=== PATIENT | male | born 1965 | race African-American/Black ===

== ENCOUNTER 2020-05-31 11:43 | Inpatient (IN) | payer OTHER ==
[2020-05-31 13:26] VITALS: BMI 22.4
[2020-05-31] MEDS ORDERED: METHADONE HCL 10 MG TABLET (FOR DETOX USE ONLY) PO ONE (14:41)
[2020-05-31] MEDS ORDERED: MAGNESIUM HYDROX 2400MG/30ML ORAL SUSPENSION 30 ML CUP PO PRN (14:41)
[2020-05-31] MEDS ORDERED: BISMUTH SUBSALICYLATE 262 MG/15 ML BTL PO PRN (14:41)
[2020-05-31] MEDS ORDERED: MAGNESIUM CITRATE 300 ML BOTTLE PO PRN (14:41)
[2020-05-31] MEDS ORDERED: IBUPROFEN 400 MG TABLET (FP) PO PRN (14:41)
[2020-05-31] MEDS ORDERED: NALOXONE (NARCAN) HCL 4 MG/0.1 ML SPRAY NS PRN (14:41)
[2020-05-31] MEDS ORDERED: ACETAMINOPHEN 325 MG TABLET (FP) PO PRN ×2 (14:41)
[2020-05-31] MEDS ORDERED: DICYCLOMINE HCL 10 MG CAPSULE PO PRN (14:41)
[2020-05-31] MEDS ORDERED: MENTHOL/PHENOL 1 EACH UD MM PRN (14:41)
[2020-05-31] MEDS ORDERED: MAG HYDROX/AL HYDROX/SIMETH 30 ML UNIT-DOSE CUP PO PRN (14:41)
[2020-05-31] MEDS ORDERED: cloNIDine HCL 0.1 MG TABLET PO PRN (14:41)
[2020-05-31] MEDS ORDERED: METHOCARBAMOL 500 MG TABLET PO PRN (14:41)
[2020-05-31] MEDS ORDERED: hydrOXYzine PAMOATE 25 MG CAPSULE (FP) PO PRN (14:41)
[2020-05-31] MEDS ORDERED: GLATIRAMER ACETATE 40 MG/ML SQ SCH (14:45)
[2020-05-31] MEDS ORDERED: [UNRECOGNIZED DRUG - OTHER] SQ SCH (14:45)
[2020-05-31 17:22] LABS: ALBUMIN 3.8 g/dl (3.4-5.0)
[2020-05-31 17:23] LABS: BLOOD UREA NITROGEN 8.9 mg/dL (7-18)
[2020-05-31 17:26] LABS: CREATININE 1.2 mg/dL (0.55-1.3); HEMATOCRIT 42.7 % (35.4-49); HEMOGLOBIN 14.1 GM/dL (11.7-16.9); MCH 31.7 pg (25.7-33.7); MCHC 33.1 g/dl (32.0-35.9); MEAN CELL VOLUME 95.6 fl (80-96); PLATELET COUNT 201 K/MM3 (134-434); RBC 4.47 M/mm3 (4.00-5.60); RDW 13.3 % (11.9-15.9); WHITE BLOOD COUNT 6.7 K/mm3 (4.0-10.0)
[2020-05-31 17:27] LABS: BILIRUBIN,TOTAL 0.6 mg/dL (0.2-1); TOT PROT 7.4 g/dl (6.4-8.2)
[2020-05-31] MEDS: BACLOFEN 10 MG TABLET (FP) PO SCH (21:34)
[2020-05-31] MEDS: GABAPENTIN 300 MG CAPSULE PO SCH (21:34)
[2020-05-31] MEDS: THIAMINE HCL 100 MG TABLET (FP) PO SCH (21:35)
[2020-05-31] MEDS: DALFAMPRIDINE 10 MG PO SCH (21:35)
[2020-05-31] MEDS: DOCUSATE SODIUM 100 MG CAPSULE (FP) PO SCH (21:35)
[2020-05-31] MEDS: MELATONIN 5 MG TABLETS PO SCH (21:35)
[2020-06-01] MEDS: BACLOFEN 10 MG TABLET (FP) PO SCH ×3 (05:49→21:34)
[2020-06-01] MEDS: DOCUSATE SODIUM 100 MG CAPSULE (FP) PO SCH ×3 (05:49→21:34)
[2020-06-01] MEDS: diazePAM 5 MG TABLET PO PRN ×2 (06:06→10:45)
[2020-06-01] MEDS ORDERED: METHADONE HCL 10 MG TABLET (FOR DETOX USE ONLY) ONE (08:50)
[2020-06-01] MEDS ORDERED: METHADONE HCL 5 MG TABLET (FOR DETOX USE ONLY) ONE (08:51)
[2020-06-01] MEDS ORDERED: METHADONE (DETOX) 20 MG, METHADONE (DETOX) 5 MG PO ONE (10:00)
[2020-06-01] MEDS: GABAPENTIN 300 MG CAPSULE PO SCH ×2 (10:40→21:33)
[2020-06-01] MEDS: OXYBUTYNIN CHLORIDE 5 MG TABLET PO SCH (10:40)
[2020-06-01] MEDS: DALFAMPRIDINE 10 MG PO SCH ×2 (10:42→21:34)
[2020-06-01] MEDS: PRENATAL VITAMINS W/ FOLIC ACID TABLET (FP) PO SCH (10:46)
[2020-06-01] MEDS: GLATIRAMER ACETATE 40 MG SQ SCH (10:46)
[2020-06-01] MEDS: SERTRALINE HCL 50 MG TABLET (FP) PO SCH (15:24)
[2020-06-01] MEDS: QUEtiapine FUMARATE 50 MG TABLET PO SCH (21:34)
[2020-06-01] MEDS: MELATONIN 5 MG TABLETS PO SCH (21:34)
[2020-06-01] MEDS: THIAMINE HCL 100 MG TABLET (FP) PO SCH (21:34)
[2020-06-02] MEDS: BACLOFEN 10 MG TABLET (FP) PO SCH ×3 (06:13→22:43)
[2020-06-02] MEDS: DOCUSATE SODIUM 100 MG CAPSULE (FP) PO SCH ×3 (06:13→22:42)
[2020-06-02] MEDS ORDERED: METHADONE HCL 10 MG TABLET (FOR DETOX USE ONLY) PO ONE (10:00)
[2020-06-02] MEDS: DALFAMPRIDINE 10 MG PO SCH ×2 (10:21→22:42)
[2020-06-02] MEDS: SERTRALINE HCL 50 MG TABLET (FP) PO SCH (10:23)
[2020-06-02] MEDS: OXYBUTYNIN CHLORIDE 5 MG TABLET PO SCH (10:23)
[2020-06-02] MEDS: GABAPENTIN 300 MG CAPSULE PO SCH ×2 (10:23→22:43)
[2020-06-02] MEDS: PRENATAL VITAMINS W/ FOLIC ACID TABLET (FP) PO SCH (10:23)
[2020-06-02] MEDS: ONDANSETRON *ODT* 4 MG TABLET SL PRN (10:23)
[2020-06-02] MEDS: diazePAM 5 MG TABLET PO PRN (10:25)
[2020-06-02] MEDS: QUEtiapine FUMARATE 50 MG TABLET PO SCH (22:42)
[2020-06-02] MEDS: MELATONIN 5 MG TABLETS PO SCH (22:43)
[2020-06-02] MEDS: THIAMINE HCL 100 MG TABLET (FP) PO SCH (22:43)
[2020-06-03] MEDS: DOCUSATE SODIUM 100 MG CAPSULE (FP) PO SCH ×3 (06:31→21:43)
[2020-06-03] MEDS: BACLOFEN 10 MG TABLET (FP) PO SCH ×3 (06:31→21:43)
[2020-06-03] MEDS: diazePAM 5 MG TABLET PO PRN ×2 (06:32→10:34)
[2020-06-03 08:09] LABS: SARS-CoV-2 NAA Not Detected (Not Detected)
[2020-06-03] MEDS ORDERED: METHADONE HCL 10 MG TABLET (FOR DETOX USE ONLY) ONE (09:35)
[2020-06-03] MEDS ORDERED: METHADONE HCL 5 MG TABLET (FOR DETOX USE ONLY) ONE (09:36)
[2020-06-03] MEDS: ONDANSETRON *ODT* 4 MG TABLET SL PRN (09:39)
[2020-06-03] MEDS ORDERED: METHADONE (DETOX) 10 MG, METHADONE (DETOX) 5 MG PO ONE (10:00)
[2020-06-03] MEDS: GLATIRAMER ACETATE 40 MG SQ SCH (10:30)
[2020-06-03] MEDS: GABAPENTIN 300 MG CAPSULE PO SCH ×2 (10:30→21:43)
[2020-06-03] MEDS: DALFAMPRIDINE 10 MG PO SCH ×2 (10:32→21:44)
[2020-06-03] MEDS: PRENATAL VITAMINS W/ FOLIC ACID TABLET (FP) PO SCH (10:33)
[2020-06-03] MEDS: OXYBUTYNIN CHLORIDE 5 MG TABLET PO SCH (10:33)
[2020-06-03] MEDS: SERTRALINE HCL 50 MG TABLET (FP) PO SCH (10:34)
[2020-06-03] MEDS: QUEtiapine FUMARATE 50 MG TABLET PO SCH (21:43)
[2020-06-03] MEDS: THIAMINE HCL 100 MG TABLET (FP) PO SCH (21:43)
[2020-06-03] MEDS: MELATONIN 5 MG TABLETS PO SCH (22:50)
[2020-06-03 23:05] LABS: EPI CELLS 7 /uL (0-25.1); HYALINE CASTS 0 /uL (0-3.1); URINE APPEARANCE TURBID; URINE BILIRUBIN NEGATIVE (NEGATIVE); URINE COLOR YELLOW; URINE GLUCOSE (UA) NEGATIVE (NEGATIVE); URINE KETONE TRACE (NEGATIVE); URINE LEUK ESTERASE NEGATIVE (NEGATIVE); URINE NITRITE POSITIVE (NEGATIVE); URINE PROTEIN NEGATIVE (NEGATIVE); URINE RBC 5 /uL (0-23.9); URINE WBC 7 /uL (0-25.8)
[2020-06-03 23:31] LABS: URINE BACTERIA MANY /uL (0-1359)
[2020-06-04] MEDS: BACLOFEN 10 MG TABLET (FP) PO SCH ×3 (05:38→22:51)
[2020-06-04] MEDS: DOCUSATE SODIUM 100 MG CAPSULE (FP) PO SCH ×3 (05:38→22:51)
[2020-06-04] MEDS: SERTRALINE HCL 50 MG TABLET (FP) PO SCH (09:46)
[2020-06-04] MEDS: DALFAMPRIDINE 10 MG PO SCH ×2 (09:46→22:51)
[2020-06-04] MEDS: PRENATAL VITAMINS W/ FOLIC ACID TABLET (FP) PO SCH (09:47)
[2020-06-04] MEDS: OXYBUTYNIN CHLORIDE 5 MG TABLET PO SCH (09:47)
[2020-06-04] MEDS: GABAPENTIN 300 MG CAPSULE PO SCH ×2 (09:47→22:51)
[2020-06-04] MEDS ORDERED: METHADONE HCL 10 MG TABLET (FOR DETOX USE ONLY) PO ONE (10:00)
[2020-06-04] MEDS: QUEtiapine FUMARATE 50 MG TABLET PO SCH (22:51)
[2020-06-04] MEDS: THIAMINE HCL 100 MG TABLET (FP) PO SCH (22:51)
[2020-06-04] MEDS: MELATONIN 5 MG TABLETS PO SCH (22:54)
[2020-06-05] MEDS ORDERED: METHADONE HCL 5 MG TABLET (FOR DETOX USE ONLY) PO ONE (06:00)
[2020-06-05] MEDS: BACLOFEN 10 MG TABLET (FP) PO SCH (06:10)
[2020-06-05] MEDS: DOCUSATE SODIUM 100 MG CAPSULE (FP) PO SCH (06:10)
[2020-06-05] MEDS: ONDANSETRON *ODT* 4 MG TABLET SL PRN (07:36)
[2020-06-05] MEDS: DALFAMPRIDINE 10 MG PO SCH (10:04)
[2020-06-05] MEDS: GABAPENTIN 300 MG CAPSULE PO SCH (10:04)
[2020-06-05] MEDS: PRENATAL VITAMINS W/ FOLIC ACID TABLET (FP) PO SCH (10:04)
[2020-06-05] MEDS: SERTRALINE HCL 50 MG TABLET (FP) PO SCH (10:04)
[2020-06-05] MEDS: OXYBUTYNIN CHLORIDE 5 MG TABLET PO SCH (10:04)
[2020-06-05 11:30] VITALS: BP 116/75; PULSE 104; TEMP 98.4
== END 2020-06-05 11:00 | disposition home or self-care (01) | DRG 773 ==
LOC: YASAS 11:43 → Y3N 15:14
PROVIDERS: ADMIT Allergy & Immunology; ATTEND Allergy & Immunology
PROC: HZ2ZZZZ Detoxification Services for Substance Abuse Treatment (ICD-10-PCS; principal; 2020-05-31)
DX: F11.23 Opioid dependence with withdrawal (principal); F12.20 Cannabis dependence, uncomplicated; G35 Multiple sclerosis; M54.5 Low back pain; G89.29 Other chronic pain; N39.0 Urinary tract infection, site not specified; Z87.891 Personal history of nicotine dependence; Z99.3 Dependence on wheelchair
CPT/HCPCS: 36415; 71045-TC-FY; 80053; 81003; 85027; 86780; 93005; 93010; C9803; J0475; Q0162; U0003; U0005

== ENCOUNTER 2021-04-15 21:51 | Inpatient (IN) | payer OTHER ==
[2021-04-16] MEDS ORDERED: IBUPROFEN 400 MG TABLET (FP) PO PRN (01:09)
[2021-04-16] MEDS ORDERED: LOPERAMIDE HCL 2 MG CAPSULE PO PRN (01:09)
[2021-04-16] MEDS ORDERED: methaDONE HCL 10 MG TABLET (FOR DETOX USE ONLY) PO ONE (01:09)
[2021-04-16] MEDS ORDERED: METHOCARBAMOL 500 MG TABLET PO PRN (01:09)
[2021-04-16] MEDS ORDERED: ACETAMINOPHEN 325 MG TABLET (FP) PO PRN ×2 (01:09)
[2021-04-16] MEDS ORDERED: MAGNESIUM CITRATE 300 ML BOTTLE PO PRN (01:09)
[2021-04-16] MEDS ORDERED: NICOTINE 10 MG CARTRIDGE (INHALER) IH PRN (01:09)
[2021-04-16] MEDS ORDERED: MAG HYDROX/AL HYDROX/SIMETH 30 ML UNIT-DOSE CUP PO PRN (01:09)
[2021-04-16] MEDS ORDERED: BISMUTH SUBSALICYLATE 524 MG/30 ML PO PRN (01:09)
[2021-04-16] MEDS ORDERED: MAGNESIUM HYDROX 2400MG/30ML ORAL SUSPENSION 30 ML CUP PO PRN (01:09)
[2021-04-16] MEDS ORDERED: ONDANSETRON *ODT* 4 MG TABLET SL PRN (01:09)
[2021-04-16] MEDS ORDERED: cloNIDine HCL 0.1 MG TABLET PO PRN (01:09)
[2021-04-16] MEDS ORDERED: MENTHOL/PHENOL 1 EACH UD MM PRN (01:09)
[2021-04-16 03:32] VITALS: BMI 21.3
[2021-04-16] MEDS: PRENATAL VITAMINS W/ FOLIC ACID TABLET (FP) PO SCH (10:06)
[2021-04-16] MEDS ORDERED: NAPROXEN 250 MG TABLET PO PRN (14:31)
[2021-04-16] MEDS ORDERED: NAPROXEN SODIUM PO PRN (15:00)
[2021-04-16] MEDS: DALFAMPRIDINE 10 MG PO SCH ×2 (15:13→22:42)
[2021-04-16] MEDS: GABAPENTIN 300 MG CAPSULE PO SCH ×2 (15:13→22:42)
[2021-04-16] MEDS: METHYL SALICYLATE/MENTHOL OINT 30 GM TUBE TP SCH (22:41)
[2021-04-16] MEDS: QUEtiapine FUMARATE 50 MG TABLET PO SCH (22:42)
[2021-04-16] MEDS: MELATONIN 5 MG TABLETS PO SCH (22:42)
[2021-04-16] MEDS: DOCUSATE SODIUM 100 MG CAPSULE (FP) PO SCH (22:42)
[2021-04-16] MEDS: THIAMINE HCL 100 MG TABLET (FP) PO SCH (22:42)
[2021-04-17] MEDS: DOCUSATE SODIUM 100 MG CAPSULE (FP) PO SCH ×3 (05:19→22:25)
[2021-04-17] MEDS: GABAPENTIN 300 MG CAPSULE PO SCH ×3 (05:19→22:25)
[2021-04-17] MEDS ORDERED: methaDONE HCL 10 MG TABLET (FOR DETOX USE ONLY) ONE (08:28)
[2021-04-17] MEDS ORDERED: PATIENT'S OWN MEDICATION (NON-FORMULARY) (Glatiramer Acetate [Copaxone] 40 MG/ML Syringe) SQ ONE (10:00)
[2021-04-17] MEDS: SERTRALINE HCL 50 MG TABLET (FP) PO SCH (10:20)
[2021-04-17] MEDS: PRENATAL VITAMINS W/ FOLIC ACID TABLET (FP) PO SCH (10:20)
[2021-04-17] MEDS: DALFAMPRIDINE 10 MG PO SCH ×2 (10:21→22:25)
[2021-04-17] MEDS: METHYL SALICYLATE/MENTHOL OINT 30 GM TUBE TP SCH ×2 (10:22→22:25)
[2021-04-17] MEDS: BACLOFEN 10 MG TABLET (FP) PO PRN (10:22)
[2021-04-17] MEDS: QUEtiapine FUMARATE 50 MG TABLET PO SCH (22:25)
[2021-04-17] MEDS: THIAMINE HCL 100 MG TABLET (FP) PO SCH (22:25)
[2021-04-17] MEDS: MELATONIN 5 MG TABLETS PO SCH (22:25)
[2021-04-18] MEDS: GABAPENTIN 300 MG CAPSULE PO SCH ×3 (05:49→22:15)
[2021-04-18] MEDS: DOCUSATE SODIUM 100 MG CAPSULE (FP) PO SCH ×3 (05:49→22:15)
[2021-04-18] MEDS ORDERED: methaDONE HCL 10 MG TABLET (FOR DETOX USE ONLY) PO ONE (10:00)
[2021-04-18] MEDS: PRENATAL VITAMINS W/ FOLIC ACID TABLET (FP) PO SCH (10:52)
[2021-04-18] MEDS: METHYL SALICYLATE/MENTHOL OINT 30 GM TUBE TP SCH ×2 (10:52→22:16)
[2021-04-18] MEDS: DALFAMPRIDINE 10 MG PO SCH ×2 (10:53→22:16)
[2021-04-18 10:54] LABS: HEMATOCRIT 39.5 % (35.4-49); HEMOGLOBIN 13.2 GM/dL (11.7-16.9); MCH 31.2 pg (25.7-33.7); MCHC 33.5 g/dl (32.0-35.9); MEAN CELL VOLUME 93.1 fl (80-96); MEAN PLT VOLUME 7.9 fl (7.5-11.1); PLATELET COUNT 291 10^3/uL (134-434); RBC 4.25 M/mm3 (4.00-5.60); RDW 12.6 % (11.9-15.9); WHITE BLOOD COUNT 5.6 K/mm3 (4.0-10.0)
[2021-04-18] MEDS: SERTRALINE HCL 50 MG TABLET (FP) PO SCH (10:54)
[2021-04-18] MEDS: BACLOFEN 10 MG TABLET (FP) PO PRN (10:56)
[2021-04-18 11:03] LABS: ALBUMIN 3.6 g/dl (3.4-5.0); BLOOD UREA NITROGEN 7.2 mg/dL (7-18); CALCIUM 9.6 mg/dL (8.5-10.1)
[2021-04-18 11:06] LABS: CREATININE 1.1 mg/dL (0.55-1.3)
[2021-04-18 11:07] LABS: BILIRUBIN,TOTAL 0.8 mg/dL (0.2-1); TOT PROT 6.9 g/dl (6.4-8.2)
[2021-04-18 16:07] LABS: SARS-CoV-2 NAA Not Detected (Not Detected)
[2021-04-18 17:38] LABS: HIV INTERPRETATION NEGATIVE (NEGATIVE)
[2021-04-18] MEDS: QUEtiapine FUMARATE 50 MG TABLET PO SCH (22:15)
[2021-04-18] MEDS: MELATONIN 5 MG TABLETS PO SCH (22:15)
[2021-04-18] MEDS: THIAMINE HCL 100 MG TABLET (FP) PO SCH (22:15)
[2021-04-19] MEDS: GABAPENTIN 300 MG CAPSULE PO SCH ×3 (05:04→22:36)
[2021-04-19] MEDS: DOCUSATE SODIUM 100 MG CAPSULE (FP) PO SCH ×3 (05:04→22:36)
[2021-04-19] MEDS ORDERED: methaDONE HCL 10 MG TABLET (FOR DETOX USE ONLY) ONE (08:53)
[2021-04-19] MEDS: DALFAMPRIDINE 10 MG PO SCH ×2 (09:50→22:37)
[2021-04-19] MEDS: PRENATAL VITAMINS W/ FOLIC ACID TABLET (FP) PO SCH (09:50)
[2021-04-19] MEDS: SERTRALINE HCL 50 MG TABLET (FP) PO SCH (09:50)
[2021-04-19] MEDS: METHYL SALICYLATE/MENTHOL OINT 30 GM TUBE TP SCH ×2 (09:51→22:38)
[2021-04-19] MEDS: CLOTRIMAZOLE 1% CREAM TP SCH ×2 (11:00→22:37)
[2021-04-19] MEDS: THIAMINE HCL 100 MG TABLET (FP) PO SCH (22:36)
[2021-04-19] MEDS: QUEtiapine FUMARATE 50 MG TABLET PO SCH (22:36)
[2021-04-19] MEDS: MELATONIN 5 MG TABLETS PO SCH (22:37)
[2021-04-20] MEDS: DOCUSATE SODIUM 100 MG CAPSULE (FP) PO SCH ×3 (05:53→22:32)
[2021-04-20] MEDS: GABAPENTIN 300 MG CAPSULE PO SCH ×3 (05:53→22:36)
[2021-04-20] MEDS ORDERED: methaDONE HCL 10 MG TABLET (FOR DETOX USE ONLY) PO ONE (10:00)
[2021-04-20] MEDS ORDERED: PATIENT'S OWN MEDICATION (NON-FORMULARY) (Glatiramer Acetate [Copaxone] 40 MG/ML Syringe) SQ SCH (10:00)
[2021-04-20] MEDS: DALFAMPRIDINE 10 MG PO SCH ×2 (10:55→22:32)
[2021-04-20] MEDS: METHYL SALICYLATE/MENTHOL OINT 30 GM TUBE TP SCH ×2 (10:55→22:58)
[2021-04-20] MEDS: PRENATAL VITAMINS W/ FOLIC ACID TABLET (FP) PO SCH (10:56)
[2021-04-20] MEDS: CLOTRIMAZOLE 1% CREAM TP SCH ×2 (10:56→22:32)
[2021-04-20] MEDS: SERTRALINE HCL 50 MG TABLET (FP) PO SCH (10:56)
[2021-04-20] MEDS: CALCIUM 250MG/VIT-D 125 UNITS 1 COMBO TABLET PO SCH (12:07)
[2021-04-20 14:05] LABS: PH,URINE >= 9.0 (5.0-8.0); URINE APPEARANCE TURBID; URINE BILIRUBIN NEGATIVE (NEGATIVE); URINE COLOR YELLOW; URINE GLUCOSE (UA) NEGATIVE (NEGATIVE); URINE KETONE NEGATIVE (NEGATIVE); URINE LEUK ESTERASE NEGATIVE (NEGATIVE); URINE NITRITE NEGATIVE (NEGATIVE); URINE PROTEIN NEGATIVE (NEGATIVE)
[2021-04-20] MEDS ORDERED: PATIENT'S OWN MEDICATION (NON-FORMULARY) (Glatiramer Acetate [Copaxone] 40 MG/ML Syringe) SQ ONE (14:30)
[2021-04-20] MEDS: QUEtiapine FUMARATE 50 MG TABLET PO SCH (22:32)
[2021-04-20] MEDS: MELATONIN 5 MG TABLETS PO SCH (22:32)
[2021-04-20] MEDS: THIAMINE HCL 100 MG TABLET (FP) PO SCH (22:33)
[2021-04-20] MEDS: BACLOFEN 10 MG TABLET (FP) PO PRN (22:34)
[2021-04-21] MEDS: GABAPENTIN 300 MG CAPSULE PO SCH (05:15)
[2021-04-21] MEDS: DOCUSATE SODIUM 100 MG CAPSULE (FP) PO SCH (05:15)
[2021-04-21] MEDS: METHYL SALICYLATE/MENTHOL OINT 30 GM TUBE TP SCH (10:17)
[2021-04-21] MEDS: PRENATAL VITAMINS W/ FOLIC ACID TABLET (FP) PO SCH (10:17)
[2021-04-21] MEDS: DALFAMPRIDINE 10 MG PO SCH (10:18)
[2021-04-21] MEDS: CLOTRIMAZOLE 1% CREAM TP SCH (10:19)
[2021-04-21] MEDS: CALCIUM 250MG/VIT-D 125 UNITS 1 COMBO TABLET PO SCH (10:19)
[2021-04-21] MEDS: SERTRALINE HCL 50 MG TABLET (FP) PO SCH (10:20)
[2021-04-21] MEDS: BACLOFEN 10 MG TABLET (FP) PO PRN (10:20)
[2021-04-21 13:11] VITALS: BP 110/72; PULSE 84; TEMP 97.3
== END 2021-04-21 13:14 | disposition other institution (70) | DRG 773 ==
LOC: YASAS 21:51 → Y3N 04-16 02:29 → Y6N 04-16 02:36
PROVIDERS: ADMIT Allergy & Immunology; ATTEND Allergy & Immunology
PROC: HZ2ZZZZ Detoxification Services for Substance Abuse Treatment (ICD-10-PCS; principal; 2021-04-16)
DX: F11.23 Opioid dependence with withdrawal (principal); F16.20 Hallucinogen dependence, uncomplicated; F12.20 Cannabis dependence, uncomplicated; F17.210 Nicotine dependence, cigarettes, uncomplicated; F31.9 Bipolar disorder, unspecified; F43.10 Post-traumatic stress disorder, unspecified; G35 Multiple sclerosis; M54.50 Low back pain, unspecified; G89.29 Other chronic pain; N39.0 Urinary tract infection, site not specified; B96.89 Other specified bacterial agents as the cause of diseases classified elsewhere; K59.00 Constipation, unspecified; R76.11 Nonspecific reaction to tuberculin skin test without active tuberculosis; Z99.89 Dependence on other enabling machines and devices
CPT/HCPCS: 36415; 80053; 81003; 85025; 85027; 86780; 87086; 87186; 87389; 87811; 93005; 93010; C9803; J0475; U0003; U0005

== ENCOUNTER 2021-04-21 13:18 | Inpatient (IN) | payer OTHER ==
[2021-04-21] MEDS ORDERED: NICOTINE 10 MG CARTRIDGE (INHALER) IH PRN (15:00)
[2021-04-21] MEDS ORDERED: MENTHOL/PHENOL 1 EACH UD MM PRN (15:00)
[2021-04-21] MEDS ORDERED: guaiFENesin 200 MG/10 ML 10 ML UNIT-DOSE CUPS PO PRN (15:00)
[2021-04-21] MEDS ORDERED: P-EPHED 60MG/TRIPROLIDI 2.5MG TABLET PO PRN (15:00)
[2021-04-21] MEDS ORDERED: LOPERAMIDE HCL 2 MG CAPSULE PO PRN (15:00)
[2021-04-21] MEDS ORDERED: IBUPROFEN 400 MG TABLET (FP) PO PRN (15:00)
[2021-04-21] MEDS ORDERED: MAGNESIUM CITRATE 300 ML BOTTLE PO PRN (15:00)
[2021-04-21] MEDS ORDERED: MAG HYDROX/AL HYDROX/SIMETH 30 ML UNIT-DOSE CUP PO PRN (15:00)
[2021-04-21] MEDS ORDERED: MAGNESIUM HYDROX 2400MG/30ML ORAL SUSPENSION 30 ML CUP PO PRN (15:00)
[2021-04-21] MEDS ORDERED: ACETAMINOPHEN 325 MG TABLET (FP) PO PRN (15:00)
[2021-04-21] MEDS ORDERED: hydrOXYzine PAMOATE 25 MG CAPSULE (FP) PO PRN (15:00)
[2021-04-21] MEDS ORDERED: BACLOFEN 10 MG TABLET (FP) PO PRN (15:11)
[2021-04-21] MEDS ORDERED: NAPROXEN 250 MG TABLET PO PRN (15:15)
[2021-04-21] MEDS ORDERED: PATIENT'S OWN MEDICATION (NON-FORMULARY) (Glatiramer Acetate [Copaxone] 40 MG/ML Syringe) SQ SCH (15:15)
[2021-04-21] MEDS: CALCIUM 500MG/VIT-D 200 UNITS COMBO TABLET (FP) PO SCH (21:33)
[2021-04-21] MEDS: DALFAMPRIDINE 10 MG PO SCH (21:33)
[2021-04-21] MEDS: GABAPENTIN 300 MG CAPSULE PO SCH (21:33)
[2021-04-21] MEDS: DOCUSATE SODIUM 100 MG CAPSULE (FP) PO SCH (21:33)
[2021-04-21] MEDS: MELATONIN 5 MG TABLETS PO SCH (21:33)
[2021-04-21] MEDS: QUEtiapine FUMARATE 50 MG TABLET PO SCH (21:33)
[2021-04-21] MEDS: THIAMINE HCL 100 MG TABLET (FP) PO SCH (21:34)
[2021-04-22] MEDS: DOCUSATE SODIUM 100 MG CAPSULE (FP) PO SCH ×3 (06:34→21:18)
[2021-04-22] MEDS: GABAPENTIN 300 MG CAPSULE PO SCH ×3 (06:34→21:18)
[2021-04-22] MEDS: PRENATAL VITAMINS W/ FOLIC ACID TABLET (FP) PO SCH (09:51)
[2021-04-22] MEDS: SERTRALINE HCL 50 MG TABLET (FP) PO SCH (09:51)
[2021-04-22] MEDS: CALCIUM 500MG/VIT-D 200 UNITS COMBO TABLET (FP) PO SCH ×2 (09:51→21:19)
[2021-04-22] MEDS: DALFAMPRIDINE 10 MG PO SCH ×2 (09:52→21:31)
[2021-04-22] MEDS: NICOTINE 7 MG/24 HOURS TOPICAL PATCH TD SCH (09:52)
[2021-04-22] MEDS ORDERED: PATIENT'S OWN MEDICATION (NON-FORMULARY) (Glatiramer Acetate [Copaxone] 40 MG) SQ SCH ×3 (10:00→15:30)
[2021-04-22] MEDS: MELATONIN 5 MG TABLETS PO SCH (21:17)
[2021-04-22] MEDS: THIAMINE HCL 100 MG TABLET (FP) PO SCH (21:17)
[2021-04-22] MEDS: QUEtiapine FUMARATE 50 MG TABLET PO SCH (21:18)
[2021-04-23] MEDS: GABAPENTIN 300 MG CAPSULE PO SCH ×3 (06:13→21:18)
[2021-04-23] MEDS: DOCUSATE SODIUM 100 MG CAPSULE (FP) PO SCH ×3 (06:13→21:18)
[2021-04-23] MEDS: NICOTINE 7 MG/24 HOURS TOPICAL PATCH TD SCH (09:49)
[2021-04-23] MEDS: SERTRALINE HCL 50 MG TABLET (FP) PO SCH (09:50)
[2021-04-23] MEDS: PRENATAL VITAMINS W/ FOLIC ACID TABLET (FP) PO SCH (09:50)
[2021-04-23] MEDS: CALCIUM 500MG/VIT-D 200 UNITS COMBO TABLET (FP) PO SCH ×2 (09:50→21:19)
[2021-04-23] MEDS: DALFAMPRIDINE 10 MG PO SCH ×2 (09:50→21:19)
[2021-04-23] MEDS: MELATONIN 5 MG TABLETS PO SCH (21:18)
[2021-04-23] MEDS: THIAMINE HCL 100 MG TABLET (FP) PO SCH (21:18)
[2021-04-23] MEDS: QUEtiapine FUMARATE 50 MG TABLET PO SCH (21:18)
[2021-04-24] MEDS: DOCUSATE SODIUM 100 MG CAPSULE (FP) PO SCH ×3 (06:22→21:24)
[2021-04-24] MEDS: GABAPENTIN 300 MG CAPSULE PO SCH ×3 (06:22→21:25)
[2021-04-24 06:53] VITALS: TEMP 97.1
[2021-04-24] MEDS: SERTRALINE HCL 50 MG TABLET (FP) PO SCH (09:46)
[2021-04-24] MEDS: PRENATAL VITAMINS W/ FOLIC ACID TABLET (FP) PO SCH (09:46)
[2021-04-24] MEDS: NICOTINE 7 MG/24 HOURS TOPICAL PATCH TD SCH (09:48)
[2021-04-24] MEDS: DALFAMPRIDINE 10 MG PO SCH ×2 (09:48→21:26)
[2021-04-24] MEDS: CALCIUM 500MG/VIT-D 200 UNITS COMBO TABLET (FP) PO SCH ×2 (09:48→21:27)
[2021-04-24] MEDS: THIAMINE HCL 100 MG TABLET (FP) PO SCH (21:24)
[2021-04-24] MEDS: QUEtiapine FUMARATE 50 MG TABLET PO SCH (21:25)
[2021-04-24] MEDS: MELATONIN 5 MG TABLETS PO SCH (21:25)
[2021-04-25] MEDS: GABAPENTIN 300 MG CAPSULE PO SCH ×2 (06:21→13:03)
[2021-04-25] MEDS: DOCUSATE SODIUM 100 MG CAPSULE (FP) PO SCH ×2 (06:21→13:03)
[2021-04-25 06:45] VITALS: BP 122/76; PULSE 100
[2021-04-25] MEDS: DALFAMPRIDINE 10 MG PO SCH (10:10)
[2021-04-25] MEDS: PRENATAL VITAMINS W/ FOLIC ACID TABLET (FP) PO SCH (10:11)
[2021-04-25] MEDS: CALCIUM 500MG/VIT-D 200 UNITS COMBO TABLET (FP) PO SCH (10:11)
[2021-04-25] MEDS: NICOTINE 7 MG/24 HOURS TOPICAL PATCH TD SCH (10:11)
[2021-04-25] MEDS: SERTRALINE HCL 50 MG TABLET (FP) PO SCH (10:12)
[2021-04-26 00:08] LABS: SARS-CoV-2 NAA Not Detected (Not Detected)
== END 2021-04-25 13:46 | disposition home or self-care (01) | DRG 773 ==
LOC: YASAS 13:18 → Y3E 13:19
PROVIDERS: ADMIT Allergy & Immunology; ATTEND Allergy & Immunology
PROC: HZ2ZZZZ Detoxification Services for Substance Abuse Treatment (ICD-10-PCS; principal; 2021-04-21)
DX: F11.20 Opioid dependence, uncomplicated (principal); F16.20 Hallucinogen dependence, uncomplicated; F12.20 Cannabis dependence, uncomplicated; F31.9 Bipolar disorder, unspecified; F32.A Depression, unspecified; F43.10 Post-traumatic stress disorder, unspecified; G35 Multiple sclerosis; M54.50 Low back pain, unspecified; G89.29 Other chronic pain; Z99.89 Dependence on other enabling machines and devices
CPT/HCPCS: C9803; U0003; U0005

== ENCOUNTER 2021-10-25 16:35 | Inpatient (IN) | payer OTHER ==
[2021-10-25 21:46] VITALS: BMI 21.3
[2021-10-25] MEDS ORDERED: DALFAMPRIDINE 10 MG PO SCH (22:00)
[2021-10-25] MEDS ORDERED: P-EPHED 60MG/TRIPROLIDI 2.5MG TABLET PO PRN (22:12)
[2021-10-25] MEDS ORDERED: ACETAMINOPHEN 325 MG TABLET (FP) PO PRN ×2 (22:12)
[2021-10-25] MEDS ORDERED: IBUPROFEN 600 MG TABLET (FP) PO PRN (22:12)
[2021-10-25] MEDS ORDERED: LOPERAMIDE HCL 2 MG CAPSULE PO PRN (22:12)
[2021-10-25] MEDS ORDERED: IBUPROFEN 400 MG TABLET (FP) PO PRN (22:12)
[2021-10-25] MEDS ORDERED: guaiFENesin 200 MG/10 ML 10 ML UNIT-DOSE CUPS PO PRN (22:12)
[2021-10-25] MEDS ORDERED: MAGNESIUM CITRATE 300 ML BOTTLE PO PRN (22:12)
[2021-10-25] MEDS ORDERED: MELATONIN 5 MG TABLETS PO PRN (22:12)
[2021-10-25] MEDS ORDERED: ONDANSETRON *ODT* 4 MG TABLET SL PRN (22:12)
[2021-10-25] MEDS ORDERED: BISMUTH SUBSALICYLATE 524 MG/30 ML PO PRN (22:12)
[2021-10-25] MEDS ORDERED: BENZOCAINE/MENTHOL (CHLORASEPTIC ) LOZENGE MM PRN (22:12)
[2021-10-25] MEDS ORDERED: DICYCLOMINE HCL 10 MG CAPSULE PO PRN (22:12)
[2021-10-25] MEDS ORDERED: MAG HYDROX/AL HYDROX/SIMETH 30 ML UNIT-DOSE CUP PO PRN (22:12)
[2021-10-25] MEDS ORDERED: MAGNESIUM HYDROX 2400MG/30ML ORAL SUSPENSION 30 ML CUP PO PRN (22:12)
[2021-10-25] MEDS ORDERED: methaDONE HCL 10 MG TABLET (FOR DETOX USE ONLY) PO ONE (22:15)
[2021-10-25] MEDS ORDERED: cloNIDine HCL 0.1 MG TABLET PO PRN (22:15)
[2021-10-26] MEDS: GABAPENTIN 300 MG CAPSULE PO SCH ×3 (05:37→22:12)
[2021-10-26] MEDS ORDERED: GABAPENTIN 300 MG CAPSULE PO SCH (06:00)
[2021-10-26] MEDS: SULFAMETHOXAZOLE/TRIMETHOPRIM 800MG/160MG D.S. TABLET PO SCH ×2 (10:17→22:12)
[2021-10-26] MEDS: CALCIUM 500MG/VIT-D 200 UNITS COMBO TABLET (FP) PO SCH ×2 (10:17→22:13)
[2021-10-26] MEDS: hydrOXYzine PAMOATE 25 MG CAPSULE (FP) PO PRN ×2 (10:18→18:14)
[2021-10-26] MEDS: PRENATAL VITAMINS W/ FOLIC ACID TABLET (FP) PO SCH (10:18)
[2021-10-26] MEDS: DOCUSATE SODIUM 100 MG CAPSULE (FP) PO PRN (13:48)
[2021-10-26 14:06] LABS: ALBUMIN 3.2 g/dl (3.4-5.0); BLOOD UREA NITROGEN 10.4 mg/dL (7-18); CALCIUM 8.8 mg/dL (8.5-10.1)
[2021-10-26 14:10] LABS: HEMOGLOBIN 13.9 GM/dL (11.7-16.9); MCH 30.6 pg (25.7-33.7); MCHC 33.1 g/dl (32.0-35.9); MEAN CELL VOLUME 92.5 fl (80-96); MEAN PLT VOLUME 8.7 fl (7.5-11.1); PLATELET COUNT 323 10^3/uL (134-434); RBC 4.54 M/mm3 (4.00-5.60); RDW 13.4 % (11.9-15.9)
[2021-10-26 14:11] LABS: BILIRUBIN,TOTAL 0.8 mg/dL (0.2-1); TOT PROT 6.8 g/dl (6.4-8.2)
[2021-10-26] MEDS: BACLOFEN 10 MG TABLET (FP) PO PRN (18:14)
[2021-10-26] MEDS: QUEtiapine FUMARATE 50 MG TABLET PO SCH (22:12)
[2021-10-26] MEDS: THIAMINE HCL 100 MG TABLET (FP) PO SCH (22:12)
[2021-10-27] MEDS: GABAPENTIN 300 MG CAPSULE PO SCH ×3 (05:50→22:53)
[2021-10-27] MEDS ORDERED: PATIENT'S OWN MEDICATION (NON-FORMULARY) (Glatiramer Acetate [Copaxone] 40 MG/ML Syringe) SQ SCH (10:00)
[2021-10-27] MEDS ORDERED: methaDONE HCL 10 MG TABLET (FOR DETOX USE ONLY) PO ONE (10:00)
[2021-10-27] MEDS: BACLOFEN 10 MG TABLET (FP) PO PRN (10:36)
[2021-10-27] MEDS: hydrOXYzine PAMOATE 25 MG CAPSULE (FP) PO PRN ×3 (10:37→17:48)
[2021-10-27] MEDS: PRENATAL VITAMINS W/ FOLIC ACID TABLET (FP) PO SCH (10:37)
[2021-10-27] MEDS: CALCIUM 500MG/VIT-D 200 UNITS COMBO TABLET (FP) PO SCH ×2 (10:37→22:52)
[2021-10-27] MEDS: SULFAMETHOXAZOLE/TRIMETHOPRIM 800MG/160MG D.S. TABLET PO SCH ×2 (10:37→22:52)
[2021-10-27] MEDS: CLOTRIMAZOLE 1% CREAM TP SCH (10:38)
[2021-10-27] MEDS: METHYL SALICYLATE/MENTHOL OINT 30 GM TUBE TP SCH (10:38)
[2021-10-27] MEDS: DOCUSATE SODIUM 100 MG CAPSULE (FP) PO PRN (13:47)
[2021-10-27] MEDS ORDERED: GLATIRAMER ACETATE 40 MG/ML SQ SCH (16:00)
[2021-10-27] MEDS: THIAMINE HCL 100 MG TABLET (FP) PO SCH (22:52)
[2021-10-27] MEDS: DALFAMPRIDINE 10 MG PO SCH (22:54)
[2021-10-27] MEDS: QUEtiapine FUMARATE 50 MG TABLET PO SCH (23:10)
[2021-10-28 00:03] VITALS: RESP 18
[2021-10-28] MEDS: GABAPENTIN 300 MG CAPSULE PO SCH (05:53)
[2021-10-28 09:34] VITALS: BP 103/77; PULSE 90; TEMP 97.5
[2021-10-28] MEDS: DALFAMPRIDINE 10 MG PO SCH (11:09)
[2021-10-28] MEDS: METHYL SALICYLATE/MENTHOL OINT 30 GM TUBE TP SCH (11:09)
[2021-10-28] MEDS: SULFAMETHOXAZOLE/TRIMETHOPRIM 800MG/160MG D.S. TABLET PO SCH (11:09)
[2021-10-28] MEDS: CALCIUM 500MG/VIT-D 200 UNITS COMBO TABLET (FP) PO SCH (11:10)
[2021-10-28] MEDS: PRENATAL VITAMINS W/ FOLIC ACID TABLET (FP) PO SCH (11:10)
[2021-10-28] MEDS: CLOTRIMAZOLE 1% CREAM TP SCH (11:10)
== END 2021-10-28 12:38 | disposition home or self-care (01) | DRG 773 ==
LOC: YASAS 16:35 → Y6N 23:21
PROVIDERS: ADMIT Allergy & Immunology; ATTEND Surgery
PROC: HZ2ZZZZ Detoxification Services for Substance Abuse Treatment (ICD-10-PCS; principal; 2021-10-25)
DX: F11.23 Opioid dependence with withdrawal (principal); F14.20 Cocaine dependence, uncomplicated; F12.20 Cannabis dependence, uncomplicated; F19.282 Other psychoactive substance dependence with psychoactive substance-induced sleep disorder; F31.9 Bipolar disorder, unspecified; G35 Multiple sclerosis; N39.0 Urinary tract infection, site not specified; R26.89 Other abnormalities of gait and mobility; Z20.822 Contact with and (suspected) exposure to COVID-19; W19.XXXA Unspecified fall, initial encounter; Y92.239 Unspecified place in hospital as the place of occurrence of the external cause; Z62.810 Personal history of physical and sexual abuse in childhood; Z99.89 Dependence on other enabling machines and devices
CPT/HCPCS: 36415; 80053; 85027; 86780; C9803-CS; J0475; U0003; U0005

== ENCOUNTER 2022-03-07 12:23 | Inpatient (IN) | payer OTHER ==
[2022-03-07 13:43] VITALS: BMI 24.1
[2022-03-07] MEDS ORDERED: LOPERAMIDE HCL 2 MG CAPSULE PO PRN (14:23)
[2022-03-07] MEDS ORDERED: IBUPROFEN 600 MG TABLET (FP) PO PRN (14:23)
[2022-03-07] MEDS ORDERED: BISMUTH SUBSALICYLATE 262 MG/15 ML BTL PO PRN (14:23)
[2022-03-07] MEDS ORDERED: MAGNESIUM HYDROX 2400MG/30ML ORAL SUSPENSION 30 ML CUP PO PRN (14:23)
[2022-03-07] MEDS ORDERED: BENZOCAINE/MENTHOL (CHLORASEPTIC ) LOZENGE MM PRN (14:23)
[2022-03-07] MEDS ORDERED: POLYETHYLENE GLYCOL (HEALTHYLAX) 3350 17 GM PACKET PO PRN (14:23)
[2022-03-07] MEDS ORDERED: IBUPROFEN 400 MG TABLET (FP) PO PRN (14:23)
[2022-03-07] MEDS ORDERED: NALOXONE HCL (KLOXXADO) 8 MG SPRAY NS PRN (14:23)
[2022-03-07] MEDS ORDERED: MAG HYDROX/AL HYDROX/SIMETH 30 ML UNIT-DOSE CUP PO PRN (14:23)
[2022-03-07] MEDS ORDERED: ACETAMINOPHEN 325 MG TABLET (FP) PO PRN ×2 (14:23)
[2022-03-07] MEDS ORDERED: ONDANSETRON *ODT* 4 MG TABLET SL PRN (14:23)
[2022-03-07] MEDS ORDERED: DICYCLOMINE HCL 10 MG CAPSULE PO PRN (14:23)
[2022-03-07] MEDS ORDERED: PATIENT'S OWN MEDICATION (NON-FORMULARY) (Glatiramer Acetate [Copaxone] 40 MG/ML Syringe) SQ SCH (14:45)
[2022-03-07 15:22] LABS: EPI CELLS 2 /uL (0-25.1); HYALINE CASTS 8 /uL (0-3.1); URINE APPEARANCE CLOUDY; URINE BACTERIA >9,000 /uL (0-1359); URINE BILIRUBIN NEGATIVE (NEGATIVE); URINE COLOR YELLOW; URINE GLUCOSE (UA) NEGATIVE (NEGATIVE); URINE KETONE TRACE (NEGATIVE); URINE LEUK ESTERASE 1+ (NEGATIVE); URINE NITRITE NEGATIVE (NEGATIVE); URINE PROTEIN TRACE (NEGATIVE); URINE WBC 447 /uL (0-25.8)
[2022-03-07 15:44] LABS: URINE RBC 80 /uL (0-23.9)
[2022-03-07] MEDS: PATIENT'S OWN MEDICATION (NON-FORMULARY) (Glatiramer Acetate [Copaxone] 40 MG) SQ SCH (15:58)
[2022-03-07] MEDS: METHOCARBAMOL 500 MG TABLET PO PRN (17:23)
[2022-03-07] MEDS: MELATONIN 5 MG TABLETS PO SCH (22:20)
[2022-03-07] MEDS: THIAMINE HCL 100 MG TABLET (FP) PO SCH (22:20)
[2022-03-07] MEDS: DALFAMPRIDINE 10 MG PO SCH (22:20)
[2022-03-08] MEDS ORDERED: cloNIDine HCL 0.1 MG TABLET PO PRN (09:24)
[2022-03-08] MEDS ORDERED: methaDONE HCL 10 MG TABLET (FOR DETOX USE ONLY) PO ONE (10:00)
[2022-03-08 10:23] LABS: HEMATOCRIT 38.1 % (35.4-49); HEMOGLOBIN 12.7 GM/dL (11.7-16.9); MCH 31.2 pg (25.7-33.7); MCHC 33.3 g/dl (32.0-35.9); MEAN CELL VOLUME 93.5 fl (80-96); MEAN PLT VOLUME 7.3 fl (7.5-11.1); PLATELET COUNT 253 10^3/uL (134-434); RBC 4.07 M/mm3 (4.00-5.60); RDW 13.1 % (11.9-15.9)
[2022-03-08] MEDS: DALFAMPRIDINE 10 MG PO SCH ×2 (10:37→21:10)
[2022-03-08] MEDS: METHOCARBAMOL 500 MG TABLET PO PRN ×2 (10:38→21:10)
[2022-03-08 11:04] LABS: ALBUMIN 3.2 g/dl (3.4-5.0); BLOOD UREA NITROGEN 10.7 mg/dL (7-18); CALCIUM 8.7 mg/dL (8.5-10.1)
[2022-03-08 11:09] LABS: BILIRUBIN,TOTAL 0.9 mg/dL (0.2-1)
[2022-03-08] MEDS: SULFAMETHOXAZOLE/TRIMETHOPRIM 800MG/160MG D.S. TABLET PO SCH ×2 (12:04→21:10)
[2022-03-08] MEDS: METHYL SALICYLATE/MENTHOL OINT 30 GM TUBE TP SCH (21:10)
[2022-03-08] MEDS: THIAMINE HCL 100 MG TABLET (FP) PO SCH (21:10)
[2022-03-08] MEDS: GABAPENTIN 300 MG CAPSULE PO SCH (21:10)
[2022-03-08] MEDS: MELATONIN 5 MG TABLETS PO SCH (21:10)
[2022-03-09] MEDS: GABAPENTIN 300 MG CAPSULE PO SCH ×3 (06:48→22:49)
[2022-03-09] MEDS: DALFAMPRIDINE 10 MG PO SCH ×2 (09:50→22:48)
[2022-03-09] MEDS: SULFAMETHOXAZOLE/TRIMETHOPRIM 800MG/160MG D.S. TABLET PO SCH ×2 (09:50→22:49)
[2022-03-09] MEDS: METHYL SALICYLATE/MENTHOL OINT 30 GM TUBE TP SCH ×2 (09:50→22:49)
[2022-03-09] MEDS: BACLOFEN 10 MG TABLET (FP) PO PRN ×2 (13:38→22:50)
[2022-03-09] MEDS: PATIENT'S OWN MEDICATION (NON-FORMULARY) (Glatiramer Acetate [Copaxone] 40 MG) SQ SCH (15:07)
[2022-03-09] MEDS: MELATONIN 5 MG TABLETS PO SCH (22:48)
[2022-03-09] MEDS: METHOCARBAMOL 500 MG TABLET PO PRN (22:49)
[2022-03-09] MEDS: THIAMINE HCL 100 MG TABLET (FP) PO SCH (22:49)
[2022-03-10] MEDS: GABAPENTIN 300 MG CAPSULE PO SCH ×3 (06:06→22:43)
[2022-03-10] MEDS ORDERED: methaDONE HCL 10 MG TABLET (FOR DETOX USE ONLY) PO ONE (10:00)
[2022-03-10] MEDS: SULFAMETHOXAZOLE/TRIMETHOPRIM 800MG/160MG D.S. TABLET PO SCH ×2 (10:35→22:43)
[2022-03-10] MEDS: DALFAMPRIDINE 10 MG PO SCH ×2 (10:35→22:39)
[2022-03-10] MEDS: METHYL SALICYLATE/MENTHOL OINT 30 GM TUBE TP SCH ×2 (10:36→22:39)
[2022-03-10] MEDS: MELATONIN 5 MG TABLETS PO SCH (22:40)
[2022-03-10] MEDS: DOCUSATE SODIUM 100 MG CAPSULE (FP) PO SCH (22:42)
[2022-03-10] MEDS: THIAMINE HCL 100 MG TABLET (FP) PO SCH (22:43)
[2022-03-10] MEDS: METHOCARBAMOL 500 MG TABLET PO PRN (22:43)
[2022-03-11] MEDS: DOCUSATE SODIUM 100 MG CAPSULE (FP) PO SCH ×3 (05:55→23:03)
[2022-03-11] MEDS: GABAPENTIN 300 MG CAPSULE PO SCH ×3 (05:55→23:03)
[2022-03-11] MEDS: DALFAMPRIDINE 10 MG PO SCH ×2 (10:11→23:04)
[2022-03-11] MEDS: METHOCARBAMOL 500 MG TABLET PO PRN (10:11)
[2022-03-11] MEDS: SULFAMETHOXAZOLE/TRIMETHOPRIM 800MG/160MG D.S. TABLET PO SCH ×2 (10:11→23:02)
[2022-03-11] MEDS: METHYL SALICYLATE/MENTHOL OINT 30 GM TUBE TP SCH ×2 (10:11→23:02)
[2022-03-11 16:36] VITALS: RESP 18
[2022-03-11] MEDS: THIAMINE HCL 100 MG TABLET (FP) PO SCH (23:04)
[2022-03-11] MEDS: MELATONIN 5 MG TABLETS PO SCH (23:04)
[2022-03-12] MEDS: GABAPENTIN 300 MG CAPSULE PO SCH ×2 (06:21→13:54)
[2022-03-12] MEDS: DOCUSATE SODIUM 100 MG CAPSULE (FP) PO SCH ×2 (06:21→13:54)
[2022-03-12] MEDS: METHYL SALICYLATE/MENTHOL OINT 30 GM TUBE TP SCH (09:27)
[2022-03-12] MEDS: METHOCARBAMOL 500 MG TABLET PO PRN (09:27)
[2022-03-12] MEDS: SULFAMETHOXAZOLE/TRIMETHOPRIM 800MG/160MG D.S. TABLET PO SCH (09:27)
[2022-03-12] MEDS: DALFAMPRIDINE 10 MG PO SCH (09:27)
[2022-03-12] MEDS ORDERED: methaDONE HCL 10 MG TABLET (FOR DETOX USE ONLY) PO ONE (10:00)
[2022-03-12 12:49] VITALS: BP 124/78; PULSE 76; TEMP 98.3
[2022-03-13] MEDS ORDERED: PATIENT'S OWN MEDICATION (NON-FORMULARY) (Glatiramer Acetate [Copaxone] 40 MG) SQ SCH (10:00)
== END 2022-03-12 14:45 | disposition home or self-care (01) | DRG 773 ==
LOC: YASAS 12:23 → Y3N 14:29
PROVIDERS: ADMIT Allergy & Immunology; ATTEND Surgery
PROC: HZ2ZZZZ Detoxification Services for Substance Abuse Treatment (ICD-10-PCS; principal; 2022-03-07)
DX: F11.23 Opioid dependence with withdrawal (principal); F10.20 Alcohol dependence, uncomplicated; F14.20 Cocaine dependence, uncomplicated; F12.20 Cannabis dependence, uncomplicated; F31.9 Bipolar disorder, unspecified; U07.1 COVID-19; G35 Multiple sclerosis; N39.0 Urinary tract infection, site not specified; M54.50 Low back pain, unspecified; G89.29 Other chronic pain; Z99.89 Dependence on other enabling machines and devices
CPT/HCPCS: 36415; 80053; 81003; 85027; 86780; 87086; 87811; C9803-CS; J0475; U0003; U0005

== ENCOUNTER 2023-01-22 12:20 | Inpatient (IN) | payer OTHER ==
[2023-01-22 13:05] VITALS: BMI 20.8
[2023-01-22] MEDS ORDERED: AMOX TR/POT CLAV 875MG/125MG TABLETS (FP) PO SCH (17:30)
[2023-01-22] MEDS ORDERED: P-EPHED 60MG/TRIPROLIDI 2.5MG TABLET PO PRN (18:20)
[2023-01-22] MEDS ORDERED: COLLOIDAL OATMEAL 1 BAR EACH TP PRN (18:20)
[2023-01-22] MEDS ORDERED: IBUPROFEN 400 MG TABLET (FP) PO PRN (18:20)
[2023-01-22] MEDS ORDERED: IBUPROFEN 600 MG TABLET (FP) PO PRN (18:20)
[2023-01-22] MEDS ORDERED: MAGNESIUM HYDROX 2400MG/30ML ORAL SUSPENSION 30 ML CUP PO PRN (18:20)
[2023-01-22] MEDS ORDERED: NICOTINE POLACRILEX 2 MG GUM BUC PRN (18:20)
[2023-01-22] MEDS ORDERED: POLYETHYLENE GLYCOL (HEALTHYLAX) 3350 17 GM PACKET PO PRN (18:20)
[2023-01-22] MEDS ORDERED: ACETAMINOPHEN 325 MG TABLET (FP) PO PRN (18:20)
[2023-01-22] MEDS ORDERED: BENZONATATE 200 MG CAPSULE PO PRN (18:20)
[2023-01-22] MEDS ORDERED: guaiFENesin 600 MG TABLET.ER (FP) PO PRN (18:20)
[2023-01-22] MEDS ORDERED: NALOXONE HCL 0.4 MG/ML VIAL IM PRN (18:20)
[2023-01-22] MEDS ORDERED: MAG HYDROX/AL HYDROX/SIMETH 30 ML UNIT-DOSE CUP PO PRN (18:20)
[2023-01-22] MEDS ORDERED: BENZOCAINE/MENTHOL (CHLORASEPTIC ) LOZENGE MM PRN (18:20)
[2023-01-22] MEDS ORDERED: NALOXONE HCL (KLOXXADO) 8 MG SPRAY NS PRN (18:20)
[2023-01-22] MEDS ORDERED: LOPERAMIDE HCL 2 MG CAPSULE PO PRN (18:20)
[2023-01-22] MEDS: BACLOFEN 10 MG TABLET (FP) PO SCH (21:24)
[2023-01-22] MEDS: THIAMINE HCL 100 MG TABLET (FP) PO SCH (21:24)
[2023-01-22] MEDS: MELATONIN 5 MG TABLETS PO SCH (21:24)
[2023-01-22] MEDS: GABAPENTIN 300 MG CAPSULE PO SCH (21:24)
[2023-01-22] MEDS: METHYL SALICYLATE/MENTHOL OINT 30 GM TUBE TP SCH (21:27)
[2023-01-22] MEDS ORDERED: TUBERCULIN PPD 5 TU/0.1ML SYRINGE (IN PATIENT USE ONLY) ID ONE (22:21)
[2023-01-23] MEDS: BACLOFEN 10 MG TABLET (FP) PO SCH ×3 (06:32→21:16)
[2023-01-23] MEDS: methaDONE HCL 40 MG DISPERSABLE TABLET PO SCH (07:10)
[2023-01-23] MEDS: AMOX TR/POT CLAV 875MG/125MG TABLETS (FP) PO SCH ×2 (07:11→17:38)
[2023-01-23] MEDS: PRENATAL VITAMINS W/ FOLIC ACID TABLET (FP) PO SCH (09:51)
[2023-01-23] MEDS: PATIENT'S OWN MEDICATION (NON-FORMULARY) (Glatiramer Acetate [Copaxone] 40 MG/ML Syringe) SQ SCH (09:51)
[2023-01-23] MEDS: GABAPENTIN 300 MG CAPSULE PO SCH ×2 (09:51→21:16)
[2023-01-23] MEDS: CHOLECALCIFEROL (VIT D3) 1,000 UNIT (25 MCG) TABLET PO SCH (10:22)
[2023-01-23] MEDS: METHYL SALICYLATE/MENTHOL OINT 30 GM TUBE TP SCH ×2 (11:10→21:52)
[2023-01-23] MEDS: DALFAMPRIDINE 10 MG PO SCH ×3 (11:10→21:17)
[2023-01-23 15:23] LABS: HEMATOCRIT 40.5 % (35.4-49); HEMOGLOBIN 13.3 GM/dL (11.7-16.9); MCH 30.6 pg (25.7-33.7); MCHC 32.9 g/dl (32.0-35.9); MEAN CELL VOLUME 93.1 fl (80-96); MEAN PLT VOLUME 7.8 fl (7.5-11.1); PLATELET COUNT 247 10^3/uL (134-434); RBC 4.36 M/mm3 (4.00-5.60); RDW 12.6 % (11.9-15.9); WHITE BLOOD COUNT 6.3 K/mm3 (4.0-10.0)
[2023-01-23 15:27] LABS: POTASSIUM 3.9 mmol/L (3.5-5.1)
[2023-01-23 15:31] LABS: BLOOD UREA NITROGEN 8.5 mg/dL (7-18); CALCIUM 9.1 mg/dL (8.5-10.1)
[2023-01-23 15:32] LABS: ALBUMIN 3.4 g/dl (3.4-5.0)
[2023-01-23 15:35] LABS: CREATININE 1.1 mg/dL (0.55-1.3)
[2023-01-23 15:36] LABS: BILIRUBIN,TOTAL 0.7 mg/dL (0.2-1)
[2023-01-23] MEDS: MELATONIN 5 MG TABLETS PO SCH (21:15)
[2023-01-23] MEDS: THIAMINE HCL 100 MG TABLET (FP) PO SCH (21:15)
[2023-01-23] MEDS: QUEtiapine FUMARATE 100 MG TABLET (FP) PO SCH (21:16)
[2023-01-23 22:17] LABS: EPI CELLS 15 /uL (0-25.1); HYALINE CASTS 2 /uL (0-3.1); URINE APPEARANCE CLOUDY; URINE BACTERIA 5 /uL (0-1359); URINE BILIRUBIN NEGATIVE (NEGATIVE); URINE COLOR YELLOW; URINE GLUCOSE (UA) NEGATIVE (NEGATIVE); URINE KETONE TRACE (NEGATIVE); URINE LEUK ESTERASE TRACE (NEGATIVE); URINE NITRITE NEGATIVE (NEGATIVE); URINE PROTEIN NEGATIVE (NEGATIVE); URINE RBC 16 /uL (0-23.9); URINE WBC 53 /uL (0-25.8)
[2023-01-24] MEDS: BACLOFEN 10 MG TABLET (FP) PO SCH ×3 (06:23→21:08)
[2023-01-24] MEDS: methaDONE HCL 40 MG DISPERSABLE TABLET PO SCH (06:23)
[2023-01-24] MEDS: AMOX TR/POT CLAV 875MG/125MG TABLETS (FP) PO SCH ×2 (07:20→17:31)
[2023-01-24] MEDS: DALFAMPRIDINE 10 MG PO SCH ×2 (09:55→21:08)
[2023-01-24] MEDS: CHOLECALCIFEROL (VIT D3) 1,000 UNIT (25 MCG) TABLET PO SCH (09:56)
[2023-01-24] MEDS: GABAPENTIN 300 MG CAPSULE PO SCH ×2 (09:56→21:08)
[2023-01-24] MEDS: PRENATAL VITAMINS W/ FOLIC ACID TABLET (FP) PO SCH (09:56)
[2023-01-24] MEDS: METHYL SALICYLATE/MENTHOL OINT 30 GM TUBE TP SCH (11:00)
[2023-01-24] MEDS: LIDOCAINE 4% PATCH TP SCH (11:00)
[2023-01-24] MEDS ORDERED: methaDONE HCL 40 MG DISPERSABLE TABLET PO SCH (11:01)
[2023-01-24] MEDS: MELATONIN 5 MG TABLETS PO SCH (21:08)
[2023-01-24] MEDS: THIAMINE HCL 100 MG TABLET (FP) PO SCH (21:08)
[2023-01-24] MEDS: QUEtiapine FUMARATE 100 MG TABLET (FP) PO SCH (21:08)
[2023-01-24] MEDS: LIDOCAINE PATCH REMOVAL MC SCH (21:08)
[2023-01-25] MEDS ORDERED: methaDONE HCL 40 MG DISPERSABLE TABLET PO SCH (06:00)
[2023-01-25] MEDS: methaDONE 80 MG, methaDONE 10 MG PO SCH (06:26)
[2023-01-25] MEDS: BACLOFEN 10 MG TABLET (FP) PO SCH ×3 (06:26→21:14)
[2023-01-25] MEDS: AMOX TR/POT CLAV 875MG/125MG TABLETS (FP) PO SCH ×2 (07:42→17:42)
[2023-01-25] MEDS: GABAPENTIN 300 MG CAPSULE PO SCH ×2 (10:02→21:14)
[2023-01-25] MEDS: PRENATAL VITAMINS W/ FOLIC ACID TABLET (FP) PO SCH (10:02)
[2023-01-25] MEDS: DALFAMPRIDINE 10 MG PO SCH ×2 (10:02→21:14)
[2023-01-25] MEDS: CHOLECALCIFEROL (VIT D3) 1,000 UNIT (25 MCG) TABLET PO SCH (10:02)
[2023-01-25] MEDS: PATIENT'S OWN MEDICATION (NON-FORMULARY) (Glatiramer Acetate [Copaxone] 40 MG/ML Syringe) SQ SCH (10:02)
[2023-01-25] MEDS: LIDOCAINE 4% PATCH TP SCH (10:03)
[2023-01-25] MEDS: DOCUSATE SODIUM 100 MG CAPSULE (FP) PO PRN ×2 (13:48→21:14)
[2023-01-25] MEDS: THIAMINE HCL 100 MG TABLET (FP) PO SCH (21:13)
[2023-01-25] MEDS: MELATONIN 5 MG TABLETS PO SCH (21:13)
[2023-01-25] MEDS: LIDOCAINE PATCH REMOVAL MC SCH (21:13)
[2023-01-25] MEDS: QUEtiapine FUMARATE 100 MG TABLET (FP) PO SCH (21:14)
[2023-01-26] MEDS: BACLOFEN 10 MG TABLET (FP) PO SCH ×3 (06:25→21:33)
[2023-01-26] MEDS: methaDONE 80 MG, methaDONE 10 MG PO SCH (06:25)
[2023-01-26] MEDS: AMOX TR/POT CLAV 875MG/125MG TABLETS (FP) PO SCH ×2 (07:55→17:40)
[2023-01-26] MEDS: DALFAMPRIDINE 10 MG PO SCH ×2 (09:35→21:33)
[2023-01-26] MEDS: CHOLECALCIFEROL (VIT D3) 1,000 UNIT (25 MCG) TABLET PO SCH (09:35)
[2023-01-26] MEDS: GABAPENTIN 300 MG CAPSULE PO SCH ×2 (09:35→21:33)
[2023-01-26] MEDS: LIDOCAINE 4% PATCH TP SCH (09:35)
[2023-01-26] MEDS: PRENATAL VITAMINS W/ FOLIC ACID TABLET (FP) PO SCH (09:38)
[2023-01-26] MEDS: MELATONIN 5 MG TABLETS PO SCH (21:33)
[2023-01-26] MEDS: QUEtiapine FUMARATE 100 MG TABLET (FP) PO SCH (21:33)
[2023-01-26] MEDS: THIAMINE HCL 100 MG TABLET (FP) PO SCH (21:33)
[2023-01-26] MEDS: LIDOCAINE PATCH REMOVAL MC SCH (21:34)
[2023-01-27] MEDS: BACLOFEN 10 MG TABLET (FP) PO SCH ×3 (06:21→21:26)
[2023-01-27] MEDS: methaDONE 80 MG, methaDONE 10 MG PO SCH (06:21)
[2023-01-27] MEDS: AMOX TR/POT CLAV 875MG/125MG TABLETS (FP) PO SCH ×2 (07:49→17:21)
[2023-01-27] MEDS: LIDOCAINE 4% PATCH TP SCH (09:32)
[2023-01-27] MEDS: GABAPENTIN 300 MG CAPSULE PO SCH ×2 (09:33→21:26)
[2023-01-27] MEDS: CHOLECALCIFEROL (VIT D3) 1,000 UNIT (25 MCG) TABLET PO SCH (09:33)
[2023-01-27] MEDS: PRENATAL VITAMINS W/ FOLIC ACID TABLET (FP) PO SCH (09:33)
[2023-01-27] MEDS: DALFAMPRIDINE 10 MG PO SCH ×2 (09:33→21:26)
[2023-01-27] MEDS: LIDOCAINE PATCH REMOVAL MC SCH (21:26)
[2023-01-27] MEDS: THIAMINE HCL 100 MG TABLET (FP) PO SCH (21:26)
[2023-01-27] MEDS: QUEtiapine FUMARATE 100 MG TABLET (FP) PO SCH (21:26)
[2023-01-27] MEDS: MELATONIN 5 MG TABLETS PO SCH (21:26)
[2023-01-28] MEDS: methaDONE 80 MG, methaDONE 10 MG PO SCH (06:29)
[2023-01-28] MEDS: BACLOFEN 10 MG TABLET (FP) PO SCH ×3 (06:29→21:22)
[2023-01-28] MEDS: AMOX TR/POT CLAV 875MG/125MG TABLETS (FP) PO SCH ×2 (07:07→17:03)
[2023-01-28] MEDS: LIDOCAINE 4% PATCH TP SCH (09:58)
[2023-01-28] MEDS: CHOLECALCIFEROL (VIT D3) 1,000 UNIT (25 MCG) TABLET PO SCH (10:01)
[2023-01-28] MEDS: PRENATAL VITAMINS W/ FOLIC ACID TABLET (FP) PO SCH (10:01)
[2023-01-28] MEDS: GABAPENTIN 300 MG CAPSULE PO SCH ×2 (10:01→21:22)
[2023-01-28] MEDS: DALFAMPRIDINE 10 MG PO SCH ×2 (10:02→21:22)
[2023-01-28] MEDS: MELATONIN 5 MG TABLETS PO SCH (21:22)
[2023-01-28] MEDS: QUEtiapine FUMARATE 100 MG TABLET (FP) PO SCH (21:22)
[2023-01-28] MEDS: LIDOCAINE PATCH REMOVAL MC SCH (21:23)
[2023-01-28] MEDS: THIAMINE HCL 100 MG TABLET (FP) PO SCH (21:23)
[2023-01-29] MEDS: methaDONE 80 MG, methaDONE 10 MG PO SCH (06:19)
[2023-01-29] MEDS: BACLOFEN 10 MG TABLET (FP) PO SCH ×3 (06:20→21:06)
[2023-01-29] MEDS: AMOX TR/POT CLAV 875MG/125MG TABLETS (FP) PO SCH (07:03)
[2023-01-29] MEDS: LIDOCAINE 4% PATCH TP SCH (09:54)
[2023-01-29] MEDS: PATIENT'S OWN MEDICATION (NON-FORMULARY) (Glatiramer Acetate [Copaxone] 40 MG/ML Syringe) SQ SCH (09:54)
[2023-01-29] MEDS: DALFAMPRIDINE 10 MG PO SCH ×2 (09:55→21:06)
[2023-01-29] MEDS: PRENATAL VITAMINS W/ FOLIC ACID TABLET (FP) PO SCH (09:56)
[2023-01-29] MEDS: CHOLECALCIFEROL (VIT D3) 1,000 UNIT (25 MCG) TABLET PO SCH (09:56)
[2023-01-29] MEDS: GABAPENTIN 300 MG CAPSULE PO SCH ×2 (11:04→21:06)
[2023-01-29] MEDS: THIAMINE HCL 100 MG TABLET (FP) PO SCH (21:06)
[2023-01-29] MEDS: QUEtiapine FUMARATE 100 MG TABLET (FP) PO SCH (21:06)
[2023-01-29] MEDS: DOCUSATE SODIUM 100 MG CAPSULE (FP) PO PRN (21:06)
[2023-01-29] MEDS: LIDOCAINE PATCH REMOVAL MC SCH (21:06)
[2023-01-29] MEDS: MELATONIN 5 MG TABLETS PO SCH (21:06)
[2023-01-30] MEDS: BACLOFEN 10 MG TABLET (FP) PO SCH ×3 (05:55→21:07)
[2023-01-30] MEDS: methaDONE 80 MG, methaDONE 10 MG PO SCH (05:55)
[2023-01-30] MEDS: DALFAMPRIDINE 10 MG PO SCH ×2 (10:05→21:08)
[2023-01-30] MEDS: LIDOCAINE 4% PATCH TP SCH (10:05)
[2023-01-30] MEDS: CHOLECALCIFEROL (VIT D3) 1,000 UNIT (25 MCG) TABLET PO SCH (10:05)
[2023-01-30] MEDS: PRENATAL VITAMINS W/ FOLIC ACID TABLET (FP) PO SCH (10:06)
[2023-01-30] MEDS: GABAPENTIN 300 MG CAPSULE PO SCH ×2 (10:06→21:07)
[2023-01-30] MEDS: PATIENT'S OWN MEDICATION (NON-FORMULARY) (Glatiramer Acetate [Copaxone] 40 MG/ML Syringe) SQ SCH (10:07)
[2023-01-30] MEDS: THIAMINE HCL 100 MG TABLET (FP) PO SCH (21:07)
[2023-01-30] MEDS: QUEtiapine FUMARATE 100 MG TABLET (FP) PO SCH (21:07)
[2023-01-30] MEDS: LIDOCAINE PATCH REMOVAL MC SCH (21:07)
[2023-01-30] MEDS: MELATONIN 5 MG TABLETS PO SCH (21:08)
[2023-01-31] MEDS: BACLOFEN 10 MG TABLET (FP) PO SCH ×3 (06:10→21:24)
[2023-01-31] MEDS: methaDONE 80 MG, methaDONE 10 MG PO SCH (06:10)
[2023-01-31] MEDS: DALFAMPRIDINE 10 MG PO SCH ×2 (09:42→21:25)
[2023-01-31] MEDS: LIDOCAINE 4% PATCH TP SCH (09:42)
[2023-01-31] MEDS: PRENATAL VITAMINS W/ FOLIC ACID TABLET (FP) PO SCH (09:43)
[2023-01-31] MEDS: GABAPENTIN 300 MG CAPSULE PO SCH ×2 (09:43→21:24)
[2023-01-31] MEDS: CHOLECALCIFEROL (VIT D3) 1,000 UNIT (25 MCG) TABLET PO SCH (09:43)
[2023-01-31] MEDS: MELATONIN 5 MG TABLETS PO SCH (21:24)
[2023-01-31] MEDS: QUEtiapine FUMARATE 100 MG TABLET (FP) PO SCH (21:24)
[2023-01-31] MEDS: THIAMINE HCL 100 MG TABLET (FP) PO SCH (21:24)
[2023-01-31] MEDS: LIDOCAINE PATCH REMOVAL MC SCH (21:25)
[2023-02-01] MEDS: methaDONE 80 MG, methaDONE 10 MG PO SCH (06:04)
[2023-02-01] MEDS: BACLOFEN 10 MG TABLET (FP) PO SCH ×3 (06:04→21:28)
[2023-02-01] MEDS: DALFAMPRIDINE 10 MG PO SCH ×2 (10:06→21:30)
[2023-02-01] MEDS: CHOLECALCIFEROL (VIT D3) 1,000 UNIT (25 MCG) TABLET PO SCH (10:06)
[2023-02-01] MEDS: PRENATAL VITAMINS W/ FOLIC ACID TABLET (FP) PO SCH (10:06)
[2023-02-01] MEDS: GABAPENTIN 300 MG CAPSULE PO SCH ×2 (10:06→21:28)
[2023-02-01] MEDS: LIDOCAINE 4% PATCH TP SCH (10:07)
[2023-02-01] MEDS: PATIENT'S OWN MEDICATION (NON-FORMULARY) (Glatiramer Acetate [Copaxone] 40 MG/ML Syringe) SQ SCH (10:28)
[2023-02-01] MEDS ORDERED: BISACODYL 5 MG TABLET.DR (FP) PO PRN (14:45)
[2023-02-01 20:09] LABS: HIV INTERPRETATION NEGATIVE (NEGATIVE)
[2023-02-01] MEDS: QUEtiapine FUMARATE 100 MG TABLET (FP) PO SCH (21:28)
[2023-02-01] MEDS: THIAMINE HCL 100 MG TABLET (FP) PO SCH (21:28)
[2023-02-01] MEDS: MELATONIN 5 MG TABLETS PO SCH (21:28)
[2023-02-01] MEDS: LIDOCAINE PATCH REMOVAL MC SCH (21:30)
[2023-02-02] MEDS ORDERED: methaDONE HCL 40 MG DISPERSABLE TABLET PO SCH (06:00)
[2023-02-02] MEDS: BACLOFEN 10 MG TABLET (FP) PO SCH ×3 (06:07→21:11)
[2023-02-02] MEDS: methaDONE 80 MG, methaDONE 20 MG PO SCH (06:07)
[2023-02-02] MEDS: GABAPENTIN 300 MG CAPSULE PO SCH ×2 (10:30→21:11)
[2023-02-02] MEDS: PRENATAL VITAMINS W/ FOLIC ACID TABLET (FP) PO SCH (10:30)
[2023-02-02] MEDS: CHOLECALCIFEROL (VIT D3) 1,000 UNIT (25 MCG) TABLET PO SCH (10:30)
[2023-02-02] MEDS: LIDOCAINE 4% PATCH TP SCH (10:31)
[2023-02-02] MEDS: DALFAMPRIDINE 10 MG PO SCH ×2 (10:31→21:11)
[2023-02-02] MEDS: THIAMINE HCL 100 MG TABLET (FP) PO SCH (21:11)
[2023-02-02] MEDS: LIDOCAINE PATCH REMOVAL MC SCH (21:11)
[2023-02-02] MEDS: MELATONIN 5 MG TABLETS PO SCH (21:11)
[2023-02-02] MEDS: QUEtiapine FUMARATE 100 MG TABLET (FP) PO SCH (21:12)
[2023-02-03] MEDS: methaDONE 80 MG, methaDONE 20 MG PO SCH (06:16)
[2023-02-03] MEDS: BACLOFEN 10 MG TABLET (FP) PO SCH ×3 (06:16→21:17)
[2023-02-03] MEDS: CHOLECALCIFEROL (VIT D3) 1,000 UNIT (25 MCG) TABLET PO SCH (09:30)
[2023-02-03] MEDS: DALFAMPRIDINE 10 MG PO SCH ×2 (09:30→21:17)
[2023-02-03] MEDS: PRENATAL VITAMINS W/ FOLIC ACID TABLET (FP) PO SCH (09:30)
[2023-02-03] MEDS: GABAPENTIN 300 MG CAPSULE PO SCH ×2 (09:30→21:17)
[2023-02-03] MEDS: LIDOCAINE 4% PATCH TP SCH (09:30)
[2023-02-03] MEDS: LIDOCAINE PATCH REMOVAL MC SCH (21:17)
[2023-02-03] MEDS: MELATONIN 5 MG TABLETS PO SCH (21:17)
[2023-02-03] MEDS: THIAMINE HCL 100 MG TABLET (FP) PO SCH (21:17)
[2023-02-03] MEDS: QUEtiapine FUMARATE 100 MG TABLET (FP) PO SCH (21:17)
[2023-02-04] MEDS: methaDONE 80 MG, methaDONE 20 MG PO SCH (06:05)
[2023-02-04] MEDS: BACLOFEN 10 MG TABLET (FP) PO SCH ×3 (06:06→21:18)
[2023-02-04] MEDS: CHOLECALCIFEROL (VIT D3) 1,000 UNIT (25 MCG) TABLET PO SCH (09:50)
[2023-02-04] MEDS: LIDOCAINE 4% PATCH TP SCH (09:50)
[2023-02-04] MEDS: PRENATAL VITAMINS W/ FOLIC ACID TABLET (FP) PO SCH (09:50)
[2023-02-04] MEDS: GABAPENTIN 300 MG CAPSULE PO SCH ×2 (09:50→21:18)
[2023-02-04] MEDS: DALFAMPRIDINE 10 MG PO SCH ×2 (09:51→21:18)
[2023-02-04] MEDS: MELATONIN 5 MG TABLETS PO SCH (21:18)
[2023-02-04] MEDS: THIAMINE HCL 100 MG TABLET (FP) PO SCH (21:18)
[2023-02-04] MEDS: LIDOCAINE PATCH REMOVAL MC SCH (21:18)
[2023-02-04] MEDS: QUEtiapine FUMARATE 100 MG TABLET (FP) PO SCH (21:18)
[2023-02-05] MEDS: methaDONE 80 MG, methaDONE 20 MG PO SCH (06:09)
[2023-02-05] MEDS: BACLOFEN 10 MG TABLET (FP) PO SCH (07:08)
[2023-02-05 08:32] VITALS: BP 105/71; PULSE 87; RESP 18; TEMP 98
[2023-02-05] MEDS: GABAPENTIN 300 MG CAPSULE PO SCH (09:19)
[2023-02-05] MEDS: DALFAMPRIDINE 10 MG PO SCH (09:19)
[2023-02-05] MEDS: PRENATAL VITAMINS W/ FOLIC ACID TABLET (FP) PO SCH (09:19)
[2023-02-05] MEDS: CHOLECALCIFEROL (VIT D3) 1,000 UNIT (25 MCG) TABLET PO SCH (09:19)
[2023-02-05] MEDS: PATIENT'S OWN MEDICATION (NON-FORMULARY) (Glatiramer Acetate [Copaxone] 40 MG/ML Syringe) SQ SCH (09:20)
== END 2023-02-05 09:42 | disposition home or self-care (01) | DRG 772 ==
LOC: YASAS 12:20 → Y3E 18:42
PROVIDERS: ADMIT Allergy & Immunology; ATTEND Psychiatry & Neurology Pain Medicine
PROC: HZ42ZZZ Group Counseling for Substance Abuse Treatment, Cognitive-Behavioral (ICD-10-PCS; principal; 2023-01-22)
DX: F11.20 Opioid dependence, uncomplicated (principal); F14.20 Cocaine dependence, uncomplicated; F12.20 Cannabis dependence, uncomplicated; F17.210 Nicotine dependence, cigarettes, uncomplicated; G62.9 Polyneuropathy, unspecified; G35 Multiple sclerosis; K59.00 Constipation, unspecified; M54.50 Low back pain, unspecified; G89.29 Other chronic pain; Z99.89 Dependence on other enabling machines and devices
CPT/HCPCS: 36415; 80053; 81003; 85027; 86780; 87389; 87635; 93005; 93010; J0475

== ENCOUNTER 2023-10-23 11:50 | Inpatient (IN) | payer BC ==
[2023-10-23 13:28] VITALS: BMI 24.9
[2023-10-23] MEDS ORDERED: guaiFENesin 600 MG TABLET.ER (FP) PO PRN (14:23)
[2023-10-23] MEDS ORDERED: IBUPROFEN 600 MG TABLET (FP) PO PRN (14:23)
[2023-10-23] MEDS ORDERED: ACETAMINOPHEN 325 MG TABLET (FP) PO PRN (14:23)
[2023-10-23] MEDS ORDERED: BENZONATATE 200 MG CAPSULE PO PRN (14:23)
[2023-10-23] MEDS ORDERED: BENZOCAINE/MENTHOL (CHLORASEPTIC ) LOZENGE MM PRN (14:23)
[2023-10-23] MEDS ORDERED: NALOXONE HCL 0.4 MG/ML VIAL IM PRN (14:23)
[2023-10-23] MEDS ORDERED: LOPERAMIDE HCL 2 MG CAPSULE PO PRN (14:23)
[2023-10-23] MEDS ORDERED: BISMUTH SUBSALICYLATE 262 MG/15 ML BTL PO PRN (14:23)
[2023-10-23] MEDS ORDERED: IBUPROFEN 400 MG TABLET (FP) PO PRN (14:23)
[2023-10-23] MEDS ORDERED: DICYCLOMINE HCL 10 MG CAPSULE PO PRN (14:23)
[2023-10-23] MEDS ORDERED: POLYETHYLENE GLYCOL (HEALTHYLAX) 3350 17 GM PACKET PO PRN (14:23)
[2023-10-23] MEDS ORDERED: ONDANSETRON *ODT* 4 MG TABLET SL PRN (14:23)
[2023-10-23] MEDS ORDERED: MAG HYDROX/AL HYDROX/SIMETH 30 ML UNIT-DOSE CUP PO PRN (14:23)
[2023-10-23] MEDS ORDERED: MAGNESIUM HYDROX 2400MG/30ML ORAL SUSPENSION 30 ML CUP PO PRN (14:23)
[2023-10-23] MEDS ORDERED: NALOXONE (NARCAN) HCL 4 MG/0.1 ML SPRAY NS PRN (14:23)
[2023-10-23] MEDS ORDERED: hydrOXYzine PAMOATE 25 MG CAPSULE (FP) PO PRN (14:23)
[2023-10-23] MEDS ORDERED: METHOCARBAMOL 500 MG TABLET PO PRN (14:23)
[2023-10-23] MEDS ORDERED: BACLOFEN 10 MG TABLET (FP) PO PRN (14:25)
[2023-10-23] MEDS ORDERED: PATIENT'S OWN MEDICATION (NON-FORMULARY) (Glatiramer Acetate [Copaxone] 40 MG/ML Syringe) SQ SCH (14:30)
[2023-10-23] MEDS: GABAPENTIN 300 MG CAPSULE PO SCH (22:22)
[2023-10-23] MEDS: SULFAMETHOXAZOLE/TRIMETHOPRIM 800MG/160MG D.S. TABLET PO SCH (22:22)
[2023-10-23] MEDS: THIAMINE 100 MG TABLET PO SCH (22:22)
[2023-10-23] MEDS: MELATONIN 5 MG TABLETS PO SCH (22:23)
[2023-10-23] MEDS: METHYL SALICYLATE/MENTHOL 30 GM TUBE TP SCH (22:23)
[2023-10-23] MEDS: DOCUSATE SODIUM 100 MG CAPSULE (FP) PO SCH (22:25)
[2023-10-24] MEDS ORDERED: methaDONE HCL 10 MG TABLET PO SCH (09:00)
[2023-10-24] MEDS: PRENATAL VITAMINS W/ FOLIC ACID TABLET (FP) PO SCH (09:17)
[2023-10-24] MEDS: CALCIUM 250MG/VIT-D 125 UNITS 1 COMBO TABLET PO SCH (10:36)
[2023-10-24] MEDS: PATIENT'S OWN MEDICATION (NON-FORMULARY) (Glatiramer Acetate [Copaxone] 40 MG) SQ SCH (10:36)
[2023-10-24] MEDS: DALFAMPRIDINE 10 MG PO SCH ×2 (10:43→18:01)
[2023-10-24 15:11] LABS: HEMATOCRIT 38.5 % (35.4-49); MCH 31.2 pg (25.7-33.7); MCHC 33.8 g/dl (32.0-35.9); MEAN CELL VOLUME 92.3 fl (80-96); MEAN PLT VOLUME 8.7 fl (7.5-11.1); PLATELET COUNT 235 10^3/uL (134-434); RBC 4.17 M/mm3 (4.00-5.60); RDW 13.9 % (11.9-15.9); WHITE BLOOD COUNT 7.4 K/mm3 (4.0-10.0)
[2023-10-24 15:14] LABS: POTASSIUM 3.8 mmol/L (3.5-5.1)
[2023-10-24 15:35] LABS: CALCIUM 9.5 mg/dL (8.5-10.1)
[2023-10-24 15:36] LABS: ALBUMIN 3.7 g/dl (3.4-5.0); BLOOD UREA NITROGEN 8.4 mg/dL (7-18)
[2023-10-24 15:40] LABS: CREATININE 1.1 mg/dL (0.55-1.3); TOT PROT 7.3 g/dl (6.4-8.2)
[2023-10-24 18:45] LABS: HIV INTERPRETATION NEGATIVE (NEGATIVE)
[2023-10-24] MEDS: QUEtiapine FUMARATE 100 MG TABLET (FP) PO SCH (22:29)
[2023-10-25] MEDS ORDERED: methaDONE HCL 10 MG TABLET PO ONE (10:00)
[2023-10-25 13:08] VITALS: BP 128/77; PULSE 63; RESP 16; TEMP 98.7
[2023-10-25] MEDS: GABAPENTIN 300 MG CAPSULE PO SCH (13:40)
[2023-10-26] MEDS ORDERED: methaDONE HCL 40 MG DISPERSABLE TABLET PO SCH (06:00)
== END 2023-10-25 15:20 | disposition other institution (70) | DRG 773 ==
LOC: YASAS 11:50 → Y6N 15:33
PROVIDERS: ADMIT Allergy & Immunology; ATTEND Surgery
PROC: HZ2ZZZZ Detoxification Services for Substance Abuse Treatment (ICD-10-PCS; principal; 2023-10-23)
DX: F11.23 Opioid dependence with withdrawal (principal); F14.20 Cocaine dependence, uncomplicated; F31.9 Bipolar disorder, unspecified; F19.282 Other psychoactive substance dependence with psychoactive substance-induced sleep disorder; G35 Multiple sclerosis; G62.9 Polyneuropathy, unspecified; M54.50 Low back pain, unspecified; G89.29 Other chronic pain; N39.498 Other specified urinary incontinence; Z86.11 Personal history of tuberculosis; Z99.89 Dependence on other enabling machines and devices
CPT/HCPCS: 36415; 80053; 80305; 85027; 86780; 86803; 87389; 87811; 93005; 93010

== ENCOUNTER 2023-10-25 15:19 | Inpatient (IN) | payer BC ==
[2023-10-25] MEDS ORDERED: METHOCARBAMOL 500 MG TABLET PO PRN (15:59)
[2023-10-25] MEDS ORDERED: hydrOXYzine PAMOATE 25 MG CAPSULE (FP) PO PRN (15:59)
[2023-10-25] MEDS ORDERED: LOPERAMIDE HCL 2 MG CAPSULE PO PRN (15:59)
[2023-10-25] MEDS ORDERED: ACETAMINOPHEN 325 MG TABLET (FP) PO PRN (15:59)
[2023-10-25] MEDS ORDERED: POLYETHYLENE GLYCOL (HEALTHYLAX) 3350 17 GM PACKET PO PRN (15:59)
[2023-10-25] MEDS ORDERED: BENZONATATE 200 MG CAPSULE PO PRN (15:59)
[2023-10-25] MEDS ORDERED: NALOXONE (NARCAN) HCL 4 MG/0.1 ML SPRAY NS PRN (15:59)
[2023-10-25] MEDS ORDERED: IBUPROFEN 600 MG TABLET (FP) PO PRN (15:59)
[2023-10-25] MEDS ORDERED: MAG HYDROX/AL HYDROX/SIMETH 30 ML UNIT-DOSE CUP PO PRN (15:59)
[2023-10-25] MEDS ORDERED: guaiFENesin 600 MG TABLET.ER (FP) PO PRN (15:59)
[2023-10-25] MEDS ORDERED: IBUPROFEN 400 MG TABLET (FP) PO PRN (15:59)
[2023-10-25] MEDS ORDERED: MAGNESIUM HYDROX 2400MG/30ML ORAL SUSPENSION 30 ML CUP PO PRN (15:59)
[2023-10-25] MEDS ORDERED: NALOXONE HCL 0.4 MG/ML VIAL IVPUSH PRN (15:59)
[2023-10-25] MEDS ORDERED: PATIENT'S OWN MEDICATION (NON-FORMULARY) (Glatiramer Acetate [Copaxone] 40 MG/ML Syringe) SQ SCH (16:15)
[2023-10-25] MEDS: THIAMINE 100 MG TABLET PO SCH (21:27)
[2023-10-25] MEDS: MELATONIN 5 MG TABLETS PO SCH (21:27)
[2023-10-25] MEDS: GABAPENTIN 300 MG CAPSULE PO SCH (21:29)
[2023-10-25] MEDS: DOCUSATE SODIUM 100 MG CAPSULE (FP) PO SCH (21:29)
[2023-10-25] MEDS: BACLOFEN 10 MG TABLET (FP) PO SCH (21:29)
[2023-10-25] MEDS: DALFAMPRIDINE 10 MG PO SCH (21:29)
[2023-10-25] MEDS: QUEtiapine FUMARATE 100 MG TABLET (FP) PO SCH (21:29)
[2023-10-26] MEDS ORDERED: methaDONE HCL 10 MG TABLET PO SCH (06:00)
[2023-10-26] MEDS: PATIENT'S OWN MEDICATION (NON-FORMULARY) (Glatiramer Acetate [Copaxone] 40 MG) SQ SCH (10:53)
[2023-10-26] MEDS: CALCIUM 250MG/VIT-D 125 UNITS 1 COMBO TABLET PO SCH (10:54)
[2023-10-26] MEDS: PRENATAL VITAMINS W/ FOLIC ACID TABLET (FP) PO SCH (10:55)
[2023-10-28] MEDS: BENZOCAINE/MENTHOL (CHLORASEPTIC ) LOZENGE MM PRN (19:05)
[2023-10-29] MEDS: DALFAMPRIDINE 10 MG PO SCH (21:08)
[2023-10-30] MEDS ORDERED: MAG HYDROX/AL HYDROX/SIMETH 30 ML UNIT-DOSE CUP PO PRN (10:50)
[2023-10-30] MEDS ORDERED: BENZONATATE 200 MG CAPSULE PO PRN (10:50)
[2023-10-30] MEDS: DALFAMPRIDINE 10 MG TAB.ER.12H PO SCH (11:02)
[2023-10-30] MEDS: AZITHROMYCIN 250 MG TABLET PO ONE (14:04)
[2023-10-30 17:22] LABS: EPI CELLS 20 /uL (0-25.1); HYALINE CASTS 1 /uL (0-3.1); URINE APPEARANCE CLEAR; URINE BACTERIA 9 /uL (0-1359); URINE BILIRUBIN NEGATIVE (NEGATIVE); URINE COLOR YELLOW; URINE GLUCOSE (UA) NEGATIVE (NEGATIVE); URINE KETONE TRACE (NEGATIVE); URINE LEUK ESTERASE TRACE (NEGATIVE); URINE NITRITE NEGATIVE (NEGATIVE); URINE PROTEIN NEGATIVE (NEGATIVE); URINE WBC 17 /uL (0-25.8)
[2023-10-30 17:47] LABS: URINE RBC 63 /uL (0-23.9)
[2023-10-31] MEDS: GLATIRAMER ACETATE SQ SCH (09:33)
[2023-10-31] MEDS: guaiFENesin 600 MG TABLET.ER (FP) PO PRN (09:37)
[2023-10-31] MEDS: AZITHROMYCIN 250 MG TABLET PO SCH (10:33)
[2023-11-06] MEDS ORDERED: BENZONATATE 200 MG CAPSULE PO PRN (11:03)
[2023-11-06] MEDS ORDERED: P-EPHED 60MG/TRIPROLIDI 2.5MG TABLET PO PRN (11:03)
[2023-11-06] MEDS ORDERED: OXYMETAZOLINE 0.05% NASAL SOLUTION 15 ML BOTTLE NS PRN (11:07)
[2023-11-06] MEDS: AZITHROMYCIN 250 MG TABLET PO ONE (13:08)
[2023-11-06] MEDS: guaiFENesin 600 MG TABLET.ER (FP) PO PRN (13:10)
[2023-11-06] MEDS: METHYL SALICYLATE/MENTHOL 30 GM TUBE TP ONE (18:40)
[2023-11-06] MEDS: METHYL SALICYLATE/MENTHOL 30 GM TUBE TP SCH (18:46)
[2023-11-07] MEDS: AZITHROMYCIN 250 MG TABLET PO SCH (09:55)
[2023-11-09] MEDS: LIDOCAINE 4% PATCH TP SCH (10:00)
[2023-11-09] MEDS: LIDOCAINE PATCH REMOVAL MC SCH (21:14)
[2023-11-11] MEDS ORDERED: QUEtiapine FUMARATE 50 MG TABLET ONE (20:48)
[2023-11-12] MEDS ORDERED: METHYL SALICYLATE/MENTHOL 30 GM TUBE TP PRN (08:15)
[2023-11-15 06:49] VITALS: BP 110/72; PULSE 84; RESP 17; TEMP 97.7
== END 2023-11-15 10:00 | disposition home or self-care (01) | DRG 772 ==
LOC: YASAS 15:19 → Y3E 15:20
PROVIDERS: ADMIT Psychiatry & Neurology Pain Medicine; ATTEND Psychiatry & Neurology Pain Medicine
PROC: HZ42ZZZ Group Counseling for Substance Abuse Treatment, Cognitive-Behavioral (ICD-10-PCS; principal; 2023-10-25)
DX: F11.20 Opioid dependence, uncomplicated (principal); F12.20 Cannabis dependence, uncomplicated; F19.282 Other psychoactive substance dependence with psychoactive substance-induced sleep disorder; F31.9 Bipolar disorder, unspecified; F43.10 Post-traumatic stress disorder, unspecified; G35 Multiple sclerosis; G62.9 Polyneuropathy, unspecified; J18.9 Pneumonia, unspecified organism; M54.50 Low back pain, unspecified; G89.29 Other chronic pain; R39.81 Functional urinary incontinence; Z86.11 Personal history of tuberculosis; Z87.891 Personal history of nicotine dependence; Z99.89 Dependence on other enabling machines and devices
CPT/HCPCS: 0241U-QW; 36415; 81003; 83036; 86803; 87086; J0475